=== PATIENT | female | born 1955 | race Caucasian/White ===

== ENCOUNTER → 2020-02-09 15:15 | Outpatient (BNVA) | payer BC, SELFPAY | PROVIDERS: Family Provider Electrodiagnostic Medicine; PCP Electrodiagnostic Medicine; Visit Provider Internal Medicine Cardiovascular Disease | DX: E87.6 Hypokalemia (principal); R06.02 Shortness of breath | CPT/HCPCS: 80048 ==

== ENCOUNTER → 2020-03-01 09:42 | Outpatient (BNVA) | payer MEDICARE, SELFPAY | PROVIDERS: Family Provider Electrodiagnostic Medicine; PCP Electrodiagnostic Medicine; Visit Provider Internal Medicine Cardiovascular Disease | DX: E87.6 Hypokalemia (principal); I10 Essential (primary) hypertension; R06.02 Shortness of breath | CPT/HCPCS: 80048 ==

== ENCOUNTER 2020-03-02 07:50 | Outpatient (CLI) | payer MEDICARE, SELFPAY ==
--- NOTE | 2020-03-02 08:00 | MM_ITS ---
WS: [id number] Bilateral screening digital mammogram, 03/02/2020 Clinical Data: SCREENING Comparison: 05/07/2018, 04/10/2017, 03/17/2016, 04/20/2015, 03/16/2015, 03/07/2014. Findings: The breast parenchymal pattern shows fibroglandular tissue No spiculated masses or clustered calcific ations are seen. There are no secondary signs of carcinoma. There are scattered benign calcifications throughout both breasts. MM/[id number] Impression: 1. Negative bilateral mammogram unchanged. 2. Recommend annual screening mammograms. BIRADS: 1-Negative FOLLOW UP: 1 Year Follow-up The CAD plan checker was used.
== END 2020-03-02 07:51 | disposition home or self-care (01) ==
LOC: RADSHAW 07:58
PROVIDERS: Family Provider Electrodiagnostic Medicine; PCP Electrodiagnostic Medicine; Visit Provider Electrodiagnostic Medicine
DX: Z12.31 Encounter for screening mammogram for malignant neoplasm of breast (principal)
CPT/HCPCS: 77067

== ENCOUNTER → 2020-05-24 15:59 | Outpatient (BNVA) | payer MEDICARE, SELFPAY | PROVIDERS: Family Provider Electrodiagnostic Medicine; PCP Electrodiagnostic Medicine; Visit Provider Internal Medicine Cardiovascular Disease | DX: R06.02 Shortness of breath (principal); E87.6 Hypokalemia | CPT/HCPCS: 80048 ==

== ENCOUNTER → 2020-11-22 16:30 | Outpatient (BNVA) | payer MEDICARE, SELFPAY | PROVIDERS: Family Provider Electrodiagnostic Medicine; PCP Electrodiagnostic Medicine; Visit Provider Internal Medicine Cardiovascular Disease | DX: E87.6 Hypokalemia (principal); R06.02 Shortness of breath | CPT/HCPCS: 80048 ==

== ENCOUNTER 2021-03-11 09:53 | Outpatient (CLI) | payer MEDICARE, SELFPAY ==
--- NOTE | 2021-03-11 09:58 | MM_ITS ---
WS: [id number] BILATERAL DIGITAL SCREENING MAMMOGRAPHY WITH CAD CLINICAL INFORMATION: SCREENING HISTORY: Screening mammogram. No current complaints. COMPARISON: March 02, 2020 TECHNIQUE: Bilateral CC and MLO views. FINDINGS: Scattered fibroglandular densities bilaterally. Stable punctate and clustered calcifications. No susp icious focal mass, asymmetry, calcifications, or architectural distortion. No evidence of malignancy. MM/[id number] IMPRESSION: BI-RADS: 2-Benign FOLLOW UP: 1 Year Follow-up Recommend return to annual screening mammography.
== END 2021-03-11 09:54 | disposition home or self-care (01) ==
LOC: RADSHAW 09:56
PROVIDERS: PCP Electrodiagnostic Medicine; Visit Provider Electrodiagnostic Medicine
DX: Z12.31 Encounter for screening mammogram for malignant neoplasm of breast (principal)
CPT/HCPCS: 77067

== ENCOUNTER → 2021-07-08 10:06 | Outpatient (BNVA) | payer MEDICARE, SELFPAY | PROVIDERS: PCP Electrodiagnostic Medicine; Visit Provider Internal Medicine Cardiovascular Disease | DX: I10 Essential (primary) hypertension (principal); E78.2 Mixed hyperlipidemia; E03.9 Hypothyroidism, unspecified; E87.6 Hypokalemia | CPT/HCPCS: 99213; 99214 ==

== ENCOUNTER 2022-04-04 08:52 | Outpatient (CLI) | payer MEDICARE, SELFPAY ==
--- NOTE | 2022-04-04 09:13 | MM_ITS ---
WS: [id number] Bilateral screening 3D tomosynthesis digital mammogram, 04/04/2022 Clinical Data: SCREENING Comparison: 03/11/2021, 03/02/2020, 05/07/2018, 04/10/2017, 03/17/2016, 04/20/2015. Findings: The breast parenchymal pattern shows glandular tissue. There are large benign calcifications in both breasts. No spiculated masses or clustered calcifications are seen. There are no secondary signs of c arcinoma. MM/[id number] Impression: 1. Negative bilateral mammogram unchanged. 2. Recommend annual screening mammograms. BIRADS: 1-Negative FOLLOW UP: 1 Year Follow-up The CAD billing checker was used.
== END 2022-04-04 08:53 | disposition home or self-care (01) ==
PROVIDERS: PCP Electrodiagnostic Medicine; Visit Provider Electrodiagnostic Medicine
DX: Z12.31 Encounter for screening mammogram for malignant neoplasm of breast (principal)
CPT/HCPCS: 77063; 77067

== ENCOUNTER 2022-09-25 08:37 | Emergency (ER) | payer MEDICARE, SELFPAY ==
[2022-09-25 08:46] VITALS: BP 124/57; PULSE 94; RESP 18; TEMP 36.5; O2SAT 100; BMI 32.2
--- NOTE | 2022-09-25 09:15 | W.ED.RECABL ---
HPI - Recheck/Abnormal Lab/Rx General: Chief Complaint: Recheck/Abnormal Lab/Rx Stated Complaint: sent by bc/abn labs Time Seen by Provider: 09/25/22 08:41 Source: patient Mode of arrival: ambulatory Limitations: no limitations History of Present Illness: Patient is a 67-year-old female who presents to ED today after she was recommended to come to the ED for further evaluation due to jaundice/scleral icterus pain on today's clinic visit. Patient states last month Review of Systems Const: Denies: fever(s), chills, body aches, fatigue or malaise Eyes: Reports: other (noticed yellowing of eyes); Denies: change in vision, blurry vision, photophobia, floaters or seeing flashes Card: Denies: chest pain Resp: Denies: dyspnea GI: Denies: abdominal pain, nausea, vomiting or diarrhea : Reports: other (dark urine); Denies: flank pain, difficulty voiding, dysuria, urinary frequency, urinary urgency or urinary hesitancy Musc: Denies: neck pain, back pain, extremity pain or joint pain Skin/Breast: Reports: pruritus and other (yellowing of skin); Denies: rash or erythema Neuro: Denies: headache(s), numbness in extremities, weakness in extremities or sensory changes PFSH ED PFSH: Medical History Anemia Asthma GERD (gastroesophageal reflux disease) Glaucoma Hypertension Hypokalemia Hypothyroid Mixed hyperlipidemia Ventral hernia Surgical History H/O: hysterectomy History of bowel resection Hx of cholecystectomy Family History Sister CAD (coronary artery disease) Diabetes Mother Cancer Denies family history of Clotting disorder Dementia Chronic kidney disease (CKD) Suicide Anesthesia complication Bleeding disorder Lung disease Stroke Social History Smoking and tobacco status: never smoked Alcohol intake: never Substance/Drug Use: never Course Vital Signs: Vital signs: Vital Signs Temperature 97.7 F 09/25/22 08:46 Pulse Rate 94 09/25/22 08:46 Respiratory Rate 18 09/25/22 08:46 Blood Pressure 124/57 09/25/22 08:46 Pulse Oximetry 100 09/25/22 08:46 MDM - Recheck/Abnormal Lab/Rx Lab Data 09/25/22 09:10 09/25/22 09:10 Laboratory Results WBC 7.4 10^3/uL (4.0-10.0) 09/25/22 09:10 RBC 3.17 10^6/uL (4.1-5.3) L 09/25/22 09:10 Hgb 9.9 g/dL (11.5-15.3) L 09/25/22 09:10 Hct 31.1 % (37.0-47.0) L 09/25/22 09:10 MCV 98.1 fl (81-99) 09/25/22 09:10 MCH 31.2 pg (28.0-34.0) 09/25/22 09:10 MCHC 31.8 g/dL (30.0-36.0) 09/25/22 09:10 RDW 15.8 % (12.1-15.1) H 09/25/22 09:10 Plt Count 367 10^3/cmm (130-400) 09/25/22 09:10 MPV 11.4 fL (7.4-10.4) H 09/25/22 09:10 Neut % (Auto) 77.4 % 09/25/22 09:10 Lymph % (Auto) 14.9 % 09/25/22 09:10 [place] % (Auto) 6.3 % 09/25/22 09:10 Eos % (Auto) 0.7 % 09/25/22 09:10 Baso % (Auto) 0.3 % 09/25/22 09:10 Neut # (Auto) 5.75 10^3/uL (1.8-7.7) 09/25/22 09:10 Lymph # (Auto) 1.1 10^3/uL (0.8-4.8) 09/25/22 09:10 [place] # (Auto) 0.5 10^3/uL (0.2-0.9) 09/25/22 09:10 Eos # (Auto) 0.1 10^3/uL (0.0-0.8) 09/25/22 09:10 Baso # (Auto) 0.0 10^3/uL (0.0-0.1) 09/25/22 09:10 Nucleated RBC % (auto) 0 % 09/25/22 09:10 Nucleated RBCs # 0.0 /100WBC 09/25/22 09:10 Discharge Plan Discharge Condition: Stable Prescriptions: No Action ipratropium bromide 0.02 % solution 2.5 ml inhalation Q6H PRN albuterol sulfate 2.5 mg /3 mL (0.083 %) solution for nebulization 2.5 mg inhalation Q4H PRN albuterol sulfate [ProAir HFA] 90 mcg/actuation HFA aerosol inhaler 2 puff inhalation Q6H PRN paroxetine HCl 10 mg tablet 10 mg PO DAILY pantoprazole 40 mg tablet,delayed release (DR/EC) 40 mg PO DAILY levothyroxine 112 mcg tablet 112 mcg PO DAILY Centrum Silver 400-250 mcg tablet,chewable 1 tab PO DAILY montelukast 10 mg tablet 10 mg PO DAILY trazodone 50 mg tablet 100 mg PO DAILY celecoxib 100 mg capsule 100 mg PO DAILY chlorthalidone 25 mg tablet 25 mg PO DAILY Qty: 90 3RF amlodipine 10 mg tablet 10 mg PO DAILY Qty: 90 3RF potassium chloride 10 mEq capsule, extended release See Rx Instructions .ROUTE .COMPLEX Qty: 90 3RF Dose Instruction: Take 1 capsule by mouth once daily Rx Instructions: Take 1 capsule by mouth once daily losartan 50 mg tablet 100 mg PO DAILY Qty: 90 3RF red yeast rice 600 mg tablet 600 mg PO BID Qty: 180 3RF Rx Instructions: give with meal/snack Referrals: Arthur Little DO [Primary Care Provider] - Coding Level of Care Code ED Tape Controlled Machine Stitcher for Edi Law
[2022-09-25 09:22] LABS: Basophils % 0.3 %; Eosinophils # 0.1 10^3/uL (0.0-0.8); Eosinophils % 0.7 %; Hematocrit 31.1 % (37.0-47.0); Hemoglobin 9.9 g/dL (11.5-15.3); Lymphocytes # 1.1 10^3/uL (0.8-4.8); Lymphocytes % 14.9 %; Mean Corpuscular HGB Conc 31.8 g/dL (30.0-36.0); Mean Corpuscular Hemoglobin 31.2 pg (28.0-34.0); Mean Corpuscular Volume 98.1 fl (81-99); Mean Platelet Volume 11.4 fL (7.4-10.4); Monocytes # 0.5 10^3/uL (0.2-0.9); Monocytes % 6.3 %; Neutrophils # 5.75 10^3/uL (1.8-7.7); Neutrophils % 77.4 %; Nucleated Red Blood Cells % 0 %; Platelet Count 367 10^3/cmm (130-400); Red Blood Count 3.17 10^6/uL (4.1-5.3); Red Cell Distribution Width 15.8 % (12.1-15.1); White Blood Count 7.4 10^3/uL (4.0-10.0)
[2022-09-25 09:38] LABS: Alanine Aminotransferase 110 U/L (0-33); Albumin Level 3.8 g/dL (3.5-5.2); Alkaline Phosphatase 767 U/L (35-105); Aspartate Amino Transferase 62 U/L (0-32); Blood Urea Nitrogen 33 mg/dL (8-23); Calcium 9.6 mg/dL (8.5-10.5); Carbon Dioxide 23 mmol/L (22-29); Chloride 100 mmol/L (98-107); Globulin 3.9 g/dL (1.3-4.6); Glomerular Filtration Rate 26.4 mL/min (90-130); Glucose 95 mg/dL (65-115); Lipase 20 U/L (13-60); Osmolality Calculated 293 mOsm/kg (285-295); Sodium 138 mmol/L (136-145); Total Bilirubin 6.7 mg/dL (0.15-1.2); Total Protein 7.7 g/dL (6.6-8.7)
--- NOTE | 2022-09-25 09:38 | ED_ITS ---
Documented by User: AARON Correa 09/25/22 15:39 HPI - General Adult General: Chief complaint: Recheck/Abnormal Lab/Rx Stated complaint: sent by bc/abn labs Time Seen by Provider: 09/25/22 08:41 Source: patient Mode of arrival: ambulatory Limitations: no limitations History of Present Illness: Patient is a 67-year-old female who presents to ED today after she was recom mended to come to the ED for further evaluation due to jaundice/scleral icterus pain on today's clinic visit. Patient states last month they had switched one of her blood pressure medications and she began noticing dark urine and pruritus. She thought it potentially was an allergic reaction so she contacted the clinic who recommended Benadryl for the itching and discontinuing the medication. She states since that time she has continued to notice dark urine and has now noticed yellowing to her skin and eyes. Triage note states she was sent here for abnormal labs however she states she has not had labs done since early July. Patient is not having any abdominal pain. She is status postchol ecystectomy years ago. She has no known history of liver cirrhosis. Denies alcohol or drug use. Onset (ago): week(s) Relieving factors: none Exacerbating factors: none Associated symptoms: Reports other (skin itching, jaundice); Deny chest pain, dyspnea, headache(s), malaise, nausea, rash or vomiting Treatments prior to arrival: none Review of Systems Const: Denies: fever(s), chills, body aches, fatigue or malaise Eyes: Reports: other (yellowing of eyes); Denies: change in vision, blurry vision, photophobia, floaters or seeing flashes Card: Denies: chest pain Resp: Denies: dyspnea GI: Denies: abdominal pain, nausea, vomiting or diarrhea : Reports: other (dark urine); Denies: flank pain, difficulty voiding, dysuria, urinary frequency, urinary urgency or urinary hesitancy Musc: Denies: neck pain, back pain, extremity pain, extremity swelling, joint pain or joint swelling Skin/Breast: Denies: rash Neuro: Denies: headache(s), numbness in extremities, weakness in extremities or sensory changes PFS ED PFSH: Medical History Anemia Asthma GERD (gastroesophageal reflux disease) Glaucoma Hypertension Hypokalemia Hypothyroid Mixed hyperlipidemia Ventral hernia Surgical History H/O: hysterectomy History of bowel resection Hx of cholecystectomy Family History Sister CAD (coronary artery disease) Diabetes Mother Cancer Denies family history of Clotting disorder Dementia Chronic kidney disease (CKD) Suicide Anesthesia complication Bleeding disorder Lung disease Stroke Social History Smoking and tobacco status: never smoked Alcohol intake: never Substance/Drug Use: never Physical Exam Const: COMMON NORMALS: no acute distress, average body habitus, patient oriented x3, no limitations, alert and well nourished GENERAL APPEARANCE: cooperative ORIENTATION/CONSCIOUSNESS: Yes awake, Yes oriented to person, Yes oriented to place and Yes oriented to time Eye: SCLERA: scleral abnormal Laterality of scleral abnormality: positive bilateral scleral icterus Neck/C-Spine: COMMON NORMALS: full ROM, no lymphadenopathy, supple and no meningeal signs Resp: COMMON NORMALS: normal respiratory effort and clear to auscultation bilaterally AUSCULTATION: clear to auscultation bilaterally Cardio: COMMON NORMALS: regular rate and regular rhythm RATE: regular rate RHYTHM: regular rhythm GI: COMMON NORMALS: Normal to inspection, nondistended, normoactive bowel sounds present, Soft to palpation, non-tender, No hepatosplenomegaly present and no masses PALPATION: Yes Soft to palpation and Yes No hepatosplenomegaly present : COMMON NORMALS: Yes no CVA tenderness BLADDER/KIDNEY EXAM: Yes no CVA tenderness Back/Pelvis: COMMON NORMALS: no CVA tenderness Extremity: COMMON NORMALS: normal to inspection GENERAL: Yes normal exam except as noted Neuro: KRISTI COMA SCALE: document GCS findings Kristi coma scale eye opening: Spontaneous Kristi coma scale verbal response: Orientated Kristi coma scale motor response: Obey commands Kristi coma scale total score: 15 COMMON NORMALS: patient oriented x3 SENSORIUM/ORIENTATION: Yes alert, Yes oriented to person, Yes oriented to place and Yes oriented to time MENINGEAL SIGNS: Yes no meningeal signs Skin: COMMON NORMALS: no rashes or lesions noted GENERAL SKIN EXAM: no rashes or lesions noted Course Consultations: Consultation #1: [place] transfer line-spoke to hospitalist Dr. Judge who will accept patient Vital Signs: Vital signs: Vital Signs Temperature 97.7 F 09/25/22 08:46 Pulse Rate 94 09/25/22 08:46 Respiratory Rate 18 09/25/22 08:46 Blood Pressure 124/57 09/25/22 08:46 Pulse Oximetry 98 09/25/22 12:46 Oxygen Delivery Me thod Room Air 09/25/22 12:46 MDM - General Adult Medical Decision Making Patient here with complaints of jaundice and pruritus. Labs showing significant elevation to her total bili at 6.7. Remainder of LFTs are also elevated. Lipase is normal. Patient's MRCP showing a significantly distended common bile duct (3.0cm) innumerable calculi present migration of the stones into her intrahepatic bile ducts. Recommend correlation with an ascending cholangitis/primary sclerosing cholangitis. Patient is not having pain. She is afebrile. She has a normal white count. I will go ahead and start her on IV Zosyn for surgical prophylaxis. She will be transferred to [facility]. Accepting hospitalist is Dr. Judge. Lab Data 09/25/22 09:10 09/25/22 09:10 Radiology Impressions Liver Ultrasound 09/25/22 09:44 IMPRESSION: 1. Central bile duct dilatation. Central hepatic ducts are mildly prominent with echogenic wall thickening. This can be seen with cholangitis. 2. The common bile duct is not visualized. There is very poor definition of the ayad hepatis. Recommend additional evaluation by CT and MRI. Suggest IV postcontrast CT and MRCP evaluation. Additional imaging to better evaluate the ayad hepatis, bile ducts and the pancreatic head. 3. Status post cholecystectomy. Cholangiopancreatography MRI 09/25/22 09:45 Impression: 1. Reported history of cholecystectomy. 2. Distended common bile duct with innumerable calculi in the ayad hepatis. This measures 3.0 cm in maximum dimension. 3. Additional intrahepatic bile duct dilatation LEFT greater than RIGHT with migration of stones into the intrahepatic ducts. 4. Diffuse lobulation and stricturing mainly involving the LEFT intrahepatic ducts with suggestion of LEFT hepatic lobe atrophy. Recommend correlation for recurrent ascending cholangitis and primary sclerosing cholangitis. 5. Recommend correlation with biliary function studies and further evaluation w ith ERCP or bile duct exploration. 6. Pancreas appears normal. Normal appearing pancreatic duct. Notified AARON Correa at 09/25/2022 11:44 AM. Laboratory Results WBC 7.4 10^3/uL (4.0-10.0) 09/25/22 09:10 RBC 3.17 10^6/uL (4.1-5.3) L 09/25/22 09:10 Hgb 9.9 g/dL (11.5-15.3) L 09/25/22 09:10 Hct 31.1 % (37.0-47.0) L 09/25/22 09:10 MCV 98.1 fl (81-99) 09/25/22 09:10 MCH 31.2 pg (28.0-34.0) 09/25/22 09:10 MCHC 31.8 g/dL (30.0-36.0) 09/25/22 09:10 RDW 15.8 % (12.1-15.1) H 09/25/22 09:10 Plt Count 367 10^3/cmm (130-400) 09/25/22 09:10 MPV 11.4 fL (7.4-10.4) H 09/25/22 09:10 Neut % (Auto) 77.4 % 09/25/22 09:10 Lymph % (Auto) 14.9 % 09/25/22 09:10 [place] % (Auto) 6.3 % 09/25/22 09:10 Eos % (Auto) 0.7 % 09/25/22 09:10 Baso % (Auto) 0.3 % 09/25/22 09:10 Neut # (Auto) 5.75 10^3/uL (1.8-7.7) 09/25/22 09:10 Lymph # (Auto) 1.1 10^3/uL (0.8-4.8) 09/25/22 09:10 [place] # (Auto) 0.5 10^3/uL (0.2-0.9) 09/25/22 09:10 Eos # (Auto) 0.1 10^3/uL (0.0-0.8) 09/25/22 09:10 Baso # (Auto) 0.0 10^3/uL (0.0-0.1) 09/25/22 09:10 Nucleated RBC % (auto) 0 % 09/25/22 09:10 Nucleated RBCs # 0.0 /100WBC 09/25/22 09:10 PT 12.60 SECONDS (12.1-14.9) 09/25/22 09:10 INR 0.91 (0.8-1.2) 09/25/22 09:10 APTT 31.2 SECONDS (23.9-36.7) 09/25/22 09:10 Sodium 138 mmol/L (136-145) 09/25/22 09:10 Potassium 4.2 mmol/L (3.5-5.1) 09/25/22 09:10 Chloride 100 mmol/L (98-107) 09/25/22 09:10 Carbon Dioxide 23 mmol/L (22-29) 09/25/22 09:10 Anion Gap 19.2 (5-19) H 09/25/22 09:10 BUN 33 mg/dL (8-23) H 09/25/22 09:10 Creatinine 1.9 mg/dL (0.5-0.9) H 09/25/22 09:10 GFR Calculation 26.4 mL/min (90-130) L 09/25/22 09:10 Glucose 95 mg/dL (65-115) 09/25/22 09:10 Calculated Osmolality 293 mOsm/kg (285-295) 09/25/22 09:10 Calcium 9.6 mg/dL (8.5-10.5) 09/25/22 09:10 Total Bilirubin 6.7 mg/dL (0.15-1.2) H 09/25/22 09:10 AST 62 U/L (0-32) H 09/25/22 09:10 ALT 110 U/L (0-33) H 09/25/22 09:10 Alkaline Phosphatase 767 U/L (35-105) H 09/25/22 09:10 Ammonia 34 umol/L (11-51) 09/25/22 10:05 Total Protein 7.7 g/dL (6.6-8.7) 09/25/22 09:10 Albumin 3.8 g/dL (3.5-5.2) 09/25/22 09:10 Globulin 3.9 g/dL (1.3-4.6) 09/25/22 09:10 Lipase 20 U/L (13-60) 09/25/22 09:10 Urine Color [place] (Yellow) 09/25/22 09:40 Urine Appearance Hazy (CLEAR) A 09/25/22 09:40 Urine pH 5 (5-7) 09/25/22 09:40 Ur Specific [place] 1.020 (1.005-1.030) 09/25/22 09:40 Urine Protein Neg (Negative) 09/25/22 09:40 Urine Glucose (UA) Norm (Normal) 09/25/22 09:40 Urine Ketones Negative (Negative) 09/25/22 09:40 Urine Blood 2+ (Negative) H 09/25/22 09:40 Urine Nitrate Negative (Negative) 09/25/22 09:40 Urine Bilirubin 1+ (Negative) H 09/25/22 09:40 Urine Urobilinogen 1 mg/dL (Negative) H 09/25/22 09:40 Ur Leukocyte Esterase 1+ (Negative) H 09/25/22 09:40 Urine RBC 5-10 /hpf (0-2) H 09/25/22 09:40 Urine WBC 55-80 /hpf (0-5) H 09/25/22 09:40 Ur Squamous Epith Cells 0-4 /hpf (0-5) H 09/25/22 09:40 Ur Renal Epithelial Cell 0-4 /hpf 09/25/22 09:40 Amorphous Sediment Not Reportable 09/25/22 09:40 Urine Bacteria 3+ /hpf (NONE) H 09/25/22 09:40 Urine Mucus Trace /hpf 09/25/22 09:40 Hepatitis A IgM Ab Non-reactive (Nonreactive) 09/25/22 09:10 Hep Bs Antigen Non-reactive (Nonreactive) 09/25/22 09:10 Hep B Core IgM Ab Non-reactive (Nonreactive) 09/25/22 09:10 Hepatitis C Antibody Non-reactive (Nonreactive) 09/25/22 09:10 Discharge Plan Discharge Patient Disposition: Xfer Short-Term Hosp Clinical Impression: Choledocholithiasis with obstruction Qualifiers: Cholangitis presence: without cholangitis Qualified Code(s): K80.51 - Calculus of bile duct without cholangitis or cholecystitis with obstruction Condition: Stable Referrals: Arthur Little DO [Primary Care Provider] - Coding Level of Care Code ED Financial Data Analyst for Chg Fwd Documented by User: Josue Gooden DO 09/25/22 16:26 HPI - General Adult General: Chief complaint: Recheck/Abnormal Lab/Rx Stated complaint: sent by bc/abn labs Time Seen by Provider: 09/25/22 08:41 PFSH ED PFSH: Medical History Anemia Asthma GERD (gastroesophageal reflux disease) Glaucoma Hypertension Hypokalemia Hypothyroid Mixed hyperlipidemia Ventral hernia Surgical History H/O: hysterectomy History of bowel resection Hx of cholecystectomy Family History Sister CAD (coronary artery disease) Diabetes Mother Cancer Denies family history of Clotting disorder Dementia Chronic kidney disease (CKD) Suicide Anesthesia complication Bleeding disorder Lung disease Stroke Social History Smoking and tobacco status: never smoked Alcohol intake: never Substance/Drug Use: never Physical Exam Neuro: KRISTI COMA SCALE: document GCS findings Kristi coma scale total sco re: 15 Course Vital Signs: Vital signs: Vital Signs Temperature 97.7 F 09/25/22 08:46 Pulse Rate 94 09/25/22 08:46 Respiratory Rate 18 09/25/22 08:46 Blood Pressure 124/57 09/25/22 08:46 Pulse Oximetry 98 09/25/22 12:46 Oxygen Delivery Me thod Room Air 09/25/22 12:46 MDM - General Adult Medical Decision Making Patient here with complaints of jaundice and pruritus. Labs showing significant elevation to her total bili at 6.7. Remainder of LFTs are also elevated. Lipase is normal. Patient's MRCP showing a significantly distended common bile duct (3.0cm) innumerable calculi present migration of the stones into her intrahepatic bile ducts. Recommend correlation with an ascending cholangitis/primary sclerosing cholangitis. Patient is not having pain. She is afebrile. She has a normal white count. I will go ahead and start her on IV Zosyn for surgical prophylaxis. She will be transferred to [facility]. Accepting hospitalist is Dr. Judge. Chart reviewed and patient discussed with midlevel. Agree with assessment and plan. Lab Data 09/25/22 09:10 09/25/22 09:10 Radiology Impressions Liver Ultrasound 09/25/22 09:44 IMPRESSION: 1. Central bile duct dilatation. Central hepatic ducts are mildly prominent with echogenic wall thickening. This can be seen with cholangitis. 2. The common bile duct is not visualized. There is very poor definition of the ayad hepatis. Recommend additional evaluation by CT and MRI. Suggest IV postcontrast CT and MRCP evaluation. Additional imaging to better evaluate the ayad hepatis, bile ducts and the pancreatic head. 3. Status post cholecystectomy. Cholangiopancreatography MRI 09/25/22 09:45 Impression: 1. Reported history of cholecystectomy. 2. Distended common bile duct with innumerable calculi in the ayad hepatis. This measures 3.0 cm in maximum dimension. 3. Additional intrahepatic bile duct dilatation LEFT greater than RIGHT with migration of stones into the intrahepatic ducts. 4. Diffuse lobulation and stricturing mainly involving the LEFT intrahepatic ducts with suggestion of LEFT hepatic lobe atrophy. Recommend correlation for recurrent ascending cholangitis and primary sclerosing cholangitis. 5. Recommend correlation with biliary function studies and further evaluation with ERCP or bile duct exploration. 6. Pancreas appears normal. Normal appearing pancreatic duct. Notified AARON Correa at 09/25/2022 11:44 AM. Laboratory Results WBC 7.4 10^3/uL (4.0-10.0) 09/25/22 09:10 RBC 3.17 10^6/uL (4.1-5.3) L 09/25/22 09:10 Hgb 9.9 g/dL (11.5-15.3) L 09/25/22 09:10 Hct 31.1 % (37.0-47.0) L 09/25/22 09:10 MCV 98.1 fl (81-99) 09/25/22 09:10 MCH 31.2 pg (28.0-34.0) 09/25/22 09:10 MCHC 31.8 g/dL (30.0-36.0) 09/25/22 09:10 RDW 15.8 % (12.1-15.1) H 09/25/22 09:10 Plt Count 367 10^3/cmm (130-400) 09/25/22 09:10 MPV 11.4 fL (7.4-10.4) H 09/25/22 09:10 Neut % (Auto) 77.4 % 09/25/22 09:10 Lymph % (Auto) 14.9 % 09/25/22 09:10 [place] % (Auto) 6.3 % 09/25/22 09:10 Eos % (Auto) 0.7 % 09/25/22 09:10 Baso % (Auto) 0.3 % 09/25/22 09:10 Neut # (Auto) 5.75 10^3/uL (1.8-7.7) 09/25/22 09:10 Lymph # (Auto) 1.1 10^3/uL (0.8-4.8) 09/25/22 09:10 [place] # (Auto) 0.5 10^3/uL (0.2-0.9) 09/25/22 09:10 Eos # (Auto) 0.1 10^3/uL (0.0-0.8) 09/25/22 09:10 Baso # (Auto) 0.0 10^3/uL (0.0-0.1) 09/25/22 09:10 Nucleated RBC % (auto) 0 % 09/25/22 09:10 Nucleated RBCs # 0.0 /100WBC 09/25/22 09:10 PT 12.60 SECONDS (12.1-14.9) 09/25/22 09:10 INR 0.91 (0.8-1.2) 09/25/22 09:10 APTT 31.2 SECONDS (23.9-36.7) 09/25/22 09:10 Sodium 138 mmol/L (136-145) 09/25/22 09:10 Potassium 4.2 mmol/L (3.5-5.1) 09/25/22 09:10 Chloride 100 mmol/L (98-107) 09/25/22 09:10 Carbon Dioxide 23 mmol/L (22-29) 09/25/22 09:10 Anion Gap 19.2 (5-19) H 09/25/22 09:10 BUN 33 mg/dL (8-23) H 09/25/22 09:10 Creatinine 1.9 mg/dL (0.5-0.9) H 09/25/22 09:10 GFR Calculation 26.4 mL/min (90-130) L 09/25/22 09:10 Glucose 95 mg/dL (65-115) 09/25/22 09:10 Calculated Osmolality 293 mOsm/kg (285-295) 09/25/22 09:10 Calcium 9.6 mg/dL (8.5-10.5) 09/25/22 09:10 Total Bilirubin 6.7 mg/dL (0.15-1.2) H 09/25/22 09:10 AST 62 U/L (0-32) H 09/25/22 09:10 ALT 110 U/L (0-33) H 09/25/22 09:10 Alkaline Phosphatase 767 U/L (35-105) H 09/25/22 09:10 Ammonia 34 umol/L (11-51) 09/25/22 10:05 Total Protein 7.7 g/dL (6.6-8.7) 09/25/22 09:10 Albumin 3.8 g/dL (3.5-5.2) 09/25/22 09:10 Globulin 3.9 g/dL (1.3-4.6) 09/25/22 09:10 Lipase 20 U/L (13-60) 09/25/22 09:10 Urine Color [place] (Yellow) 09/25/22 09:40 Urine Appearance Hazy (CLEAR) A 09/25/22 09:40 Urine pH 5 (5-7) 09/25/22 09:40 Ur Specific [place] 1.020 (1.005-1.030) 09/25/22 09:40 Urine Protein Neg (Negative) 09/25/22 09:40 Urine Glucose (UA) Norm (Normal) 09/25/22 09:40 Urine Ketones Negative (Negative) 09/25/22 09:40 Urine Blood 2+ (Negative) H 09/25/22 09:40 Urine Nitrate Negative (Negative) 09/25/22 09:40 Urine Bilirubin 1+ (Negative) H 09/25/22 09:40 Urine Urobilinogen 1 mg/dL (Negative) H 09/25/22 09:40 Ur Leukocyte Esterase 1+ (Negative) H 09/25/22 09:40 Urine RBC 5-10 /hpf (0-2) H 09/25/22 09:40 Urine WBC 55-80 /hpf (0-5) H 09/25/22 09:40 Ur Squamous Epith Cells 0-4 /hpf (0-5) H 09/25/22 09:40 Ur Renal Epithelial Cell 0-4 /hpf 09/25/22 09:40 Amorphous Sediment Not Reportable 09/25/22 09:40 Urine Bacteria 3+ /hpf (NONE) H 09/25/22 09:40 Urine Mucus Trace /hpf 09/25/22 09:40 Hepatitis A IgM Ab Non-reactive (Nonreactive) 09/25/22 09:10 Hep Bs Antigen Non-reactive (Nonreactive) 09/25/22 09:10 Hep B Core IgM Ab Non-reactive (Nonreactive) 09/25/22 09:10 Hepatitis C Antibody Non-reactive (Nonreactive) 09/25/22 09:10 Discharge Plan Discharge Patient Disposition: Xfer Short-Term Hosp Clinical Impression: Choledocholithiasis with obstruction Qualifiers: Cholangitis presence: without cholangitis Qualified Code(s): K80.51 - Calculus of bile duct without cholangitis or cholecystitis with obstruction Condition: Stable Referrals: Arthur Little DO [Primary Care Provider] - Coding Level of Care Code ED Financial Data Analyst for Edi Law
[2022-09-25 09:39] LABS: Anion Gap 19.2 (5-19); Potassium 4.2 mmol/L (3.5-5.1)
--- NOTE | 2022-09-25 09:44 | US_ITS ---
WS: [id number] RIGHT UPPER QUADRANT ULTRASOUND HISTORY: jaundice, prior cholecystectomy. COMPARISON: None available. Liver: 19.9 cm in length. Enlarged with coarse echotexture of the liver. Central bile ducts are dilat ed. The common bile duct is very difficult to visualize. In the central liver at the hilum there is i ncreased echogenic foci which could be in the duct system is thickened echogenic love of the common bile duct. Portal Vein: Normal hepatopetal flow with monophasic waveform. Gallbladder: Status post cholecystectomy. CBD: Common bile duct is poorly visualized. Pancreas: No definite abnormality. Pancreatic duct is not enlarged. There is some shadowing at the pa ncreatic head but no definite mass. Right kidney: 10.0 cm in length. Normal size and echogenicity. No hydronephrosis or mass. Aorta and IVC: Unremarkable abdominal aorta and IVC. No ascites. US/US liver [id number] IMPRESSION: 1. Central bile duct dilatation. Central hepatic ducts are mildly prominent wi th echogenic wall thickening. This can be seen with cholangitis. 2. The common bile duct is not visualized. There is very poor definition of th e ayad hepatis. Recommend additional evaluation by CT and MRI. Suggest IV post contrast CT and MRCP evaluation. Additional imaging to better evaluate the port a hepatis, bile ducts and the pancreatic head. 3. Status post cholecystectomy.
--- NOTE | 2022-09-25 09:45 | MR_ITS ---
WS: [id number] MRI/MRCP OF THE ABDOMEN WITHOUT GADOLINIUM ENHANCEMENT TECHNIQUE: Coronal T2 Fase BH, Axial T2 Fase BH, Axial T2 FS BH, Zxial 3D Castillo BH, Axial DWI BH, 2D MRCP Radial BH, 3D MRCP (Resp), CLINICAL INFORMATION: jaundice, elevated LFTs COMPARISON: Ultrasound September 25, 2022 FINDINGS: Reported history of prior cholecystectomy. Stone filled dilated structure in the ayad hepatis presum ably common bile duct with innumerable calculi and distention. This measures up to 3.0 cm in maximum dimension. In addition, there is proximal dilatation with migration of calculi into the LEFT greater than RIGHT intrahepatic ducts. Diffuse lobulated dilatation or stricturing of the LEFT intrahepatic d ucts. LEFT hepatic lobe appears somewhat atrophic. Pancreas appears normal. Normal pancreatic duct. Normal spleen. Normal GE junction. Normal caliber up per abdominal aorta. No hydronephrosis in either kidney. MR/MR MRCP [id number] Impression: 1. Reported history of cholecystectomy. 2. Distended common bile duct with innumerable calculi in the ayad hepatis. T his measures 3.0 cm in maximum dimension. 3. Additional intrahepatic bile duct dilatation LEFT greater than RIGHT with m igration of stones into the intrahepatic ducts. 4. Diffuse lobulation and stricturing mainly involving the LEFT intrahepatic d ucts with suggestion of LEFT hepatic lobe atrophy. Recommend correlation for re current ascending cholangitis and primary sclerosing cholangitis. 5. Recommend correlation with biliary function studies and further evaluation with ERCP or bile duct exploration. 6. Pancreas appears normal. Normal appearing pancreatic duct. Notified AARON Correa at 09/25/2022 11:44 AM.
[2022-09-25 09:56] LABS: INR 0.91 (0.8-1.2)
[2022-09-25 09:57] LABS: Partial Thromboplastin Time 31.2 SECONDS (23.9-36.7)
[2022-09-25 10:13] LABS: Hepatitis A Antibody IgM Non-Reactive (Nonreactive); Hepatitis B Core IgM Non-Reactive (Nonreactive); Hepatitis B Surface Antigen Non-Reactive (Nonreactive); Hepatitis C Virus Antibody Non-Reactive (Nonreactive)
[2022-09-25 10:15] LABS: Blood Urine 2+ (Negative); Glucose Urine UA Norm (Normal); Ketones Urine Negative (Negative); Nitrate Urine Negative (Negative); Protein Urine Neg (Negative); Urine Appearance Hazy (CLEAR); Urine Color Amber (Yellow); pH Urine 5 (5-7)
[2022-09-25 10:16] LABS: Add Urine Microscopic? YES; Bilirubin Urine 1+ (Negative); Leukocyte Esterase Urine 1+ (Negative); Urobilinogen Urine 1 mg/dL (Negative)
[2022-09-25 10:27] LABS: Ammonia 34 umol/L (11-51)
[2022-09-25 10:28] LABS: Bacteria Urine 3+ /hpf; Mucus Urine TRACE /hpf; Renal Epithelial Cells Urine 0-4 /hpf; Squamous Epithelial Cell Urine 0-4 /hpf (0-5); WBC Urine 55-80 /hpf (0-5)
[2022-09-25 10:29] LABS: Add Urine Culture? Yes
[2022-09-25 10:57] VITALS: O2SAT 98
[2022-09-25 12:46] VITALS: O2SAT 98
[2022-09-25] MEDS: sodium chloride 0.9% 1,000 ML 999 ML IV (13:11)
[2022-09-25] MEDS: piperacillin-tazobactam 3.375 GM in sodium chloride 0.9% (plus) 50 ML IV (13:11)
== END 2022-09-25 15:49 | disposition short-term general hospital (02) ==
PROVIDERS: Emergency Provider Physician Assistant; PCP Electrodiagnostic Medicine
DX: K80.51 Calculus of bile duct without cholangitis or cholecystitis with obstruction (principal); I10 Essential (primary) hypertension; E78.2 Mixed hyperlipidemia
CPT/HCPCS: 74181; 76705; 80053; 80074; 81001; 82140; 83690; 85025; 85610; 85730; 87077; 87086; 87186; 96374; 99285; J2543; J7030

== ENCOUNTER 2023-04-10 13:07 | Outpatient (CLI) | payer MEDICARE, SELFPAY ==
--- NOTE | 2023-04-10 13:12 | MM_ITS ---
WS: [id number] BILATERAL 3D TOMOSYNTHESIS DIGITAL SCREENING MAMMOGRAPHY WITH CAD CLINICAL INFORMATION: SCREENING HISTORY: Screening mammogram. No current complaints. COMPARISON: 04/04/2022 TECHNIQUE: Bilateral CC and MLO views. FINDINGS: Scattered fibroglandular densities bilaterally. No suspicious focal mass, asymmetry, calcifications, or architectural distortion. No evidence of malignancy. Incidental punctate and lucent calcifications . Coarse clustered calcifications RIGHT breast unchanged. IMPRESSION: MM/[place] [id number] BI-RADS: 2-Benign FOLLOW UP: 1 Year Follow-up Recommend return to annual screening mammography.
== END 2023-04-10 13:08 | disposition home or self-care (01) ==
LOC: RAD 13:07
PROVIDERS: PCP Electrodiagnostic Medicine; Visit Provider Electrodiagnostic Medicine
DX: Z12.31 Encounter for screening mammogram for malignant neoplasm of breast (principal)
CPT/HCPCS: 77063; 77067

== ENCOUNTER 2024-04-15 08:09 | Outpatient (CLI) | payer MEDICARE, SELFPAY ==
--- NOTE | 2024-04-15 08:12 | MM_ITS ---
WS: [id number] BILATERAL SCREENING DIGITAL TOMOSYNTHESIS MAMMOGRAM WITH CAD HISTORY: SCREENING COMPARISON: 04/10/2023, 04/04/2022, 03/11/2021 Bilateral CC and MLO views with tomosynthesis and synthetic mammography submitted. Computer aided det ection analyzed. Breast composition: The breasts are heterogeneously dense, which may obscure small masses. No suspici ous masses, microcalcifications or architectural distortion. Scattered dense asymmetries. Numerous co arse calcifications in each breast. No new mass and no distortion. MM/MM [facility] tomosynthesis [id number] IMPRESSION: BI-RADS: 2 - Benign FOLLOW UP: 1 Year Follow-up
== END 2024-04-15 08:10 | disposition home or self-care (01) ==
LOC: RAD 08:11
PROVIDERS: PCP Electrodiagnostic Medicine; Visit Provider Electrodiagnostic Medicine
DX: Z12.31 Encounter for screening mammogram for malignant neoplasm of breast (principal); R92.333 Mammographic heterogeneous density, bilateral breasts; N64.89 Other specified disorders of breast; R92.1 Mammographic calcification found on diagnostic imaging of breast
CPT/HCPCS: 77063; 77067